=== PATIENT | female | born 1990 | race Caucasian/White ===

== ENCOUNTER 2021-09-30 08:52 | Emergency (ER) | payer BC ==
[2021-09-30 09:44] LABS: #Eosinphils 0.1 10x3/uL (0.0-0.5); #Monocytes 0.5 10x3/uL (0.0-1.1); #Neutrophils 5.1 10x3/uL (1.5-8.4); %Basophils 0.4 % (0.0-2.0); %Eosinophils 0.7 % (0.0-6.0); %Lymphocytes 29.8 % (18.0-47.0); %Monocytes 5.7 % (0.0-10.0); %Neutrophils 63.3 % (40.0-75.0); Hemoglobin 13.8 g/dL (12.0-15.5); Mean Corpuscular HGB CONC 34.8 g/dL (32.0-36.0); Mean Corpuscular Hemoglobin 29.7 pg (27.0-33.0); Mean Corpuscular Volume 85.3 fl (81.6-98.3); Mean Platelet Volume 9.8 fl (7.4-10.4); Platelet Count 246 10x3/uL (150-450); RBC Distribution Width 12.3 % (11.5-14.5); Red Blood Cell (RBC) Count 4.64 10x6/uL (3.90-5.03); White Blood Cell (WBC) Count 8.1 10x3/uL (3.5-10.5)
[2021-09-30 10:44] LABS: ALT (SGPT) 21 U/L (8-55); AST (SGOT) 20 U/L (5-34); Albumin 4.9 g/dL (3.5-5.0); Alkaline Phosphatase 42 U/L (40-110); Anion Gap 14 mmol/L (10-20); BUN (Urea Nitrogen) 10 mg/dL (7.0-18.7); Bilirubin, Total 1.1 mg/dL (0.2-1.2); Calc. Creatinine Clearance 0 mL/min (70-130); Calcium 9.3 mg/dL (7.8-10.44); Carbon Dioxide 24 mmol/L (22-29); Chloride 104 mmol/L (98-107); Glucose 123 mg/dL (70-105); Protein, Total 7.9 g/dL (6.0-8.3); Sodium 138 mmol/L (136-145)
== END 2021-09-30 11:16 | disposition home or self-care (01) ==
LOC: CSHERS 08:52
DX: O03.9 Complete or unspecified spontaneous abortion without complication (principal)
CPT/HCPCS: 71045; 76856; 80053; 84484; 84702; 85025; 86850; 86900; 86901; 93005

== ENCOUNTER 2021-10-04 11:04 | Outpatient (CLI) | payer BC | END 2021-10-04 11:05 | disposition home or self-care (01) | LOC: CSHLAB 11:04 | PROVIDERS: ATTEND Student in an Organized Health Care Education/Training Program | DX: Z01.812 Encounter for preprocedural laboratory examination (principal); Z20.822 Contact with and (suspected) exposure to COVID-19; O03.4 Incomplete spontaneous abortion without complication | CPT/HCPCS: 85027; 86850; 86900; 86901; U0003; U0005 ==

== ENCOUNTER 2021-10-06 09:50 | Day surgery (SDC) | payer BC ==
[2021-10-04 11:56] LABS: Hemoglobin 8.2 g/dL (12.0-15.5); Mean Corpuscular HGB CONC 32.7 g/dL (32.0-36.0); Mean Corpuscular Hemoglobin 29.2 pg (27.0-33.0); Mean Corpuscular Volume 89.3 fl (81.6-98.3); Mean Platelet Volume 9.6 fl (7.4-10.4); Platelet Count 224 10x3/uL (150-450); RBC Distribution Width 12.9 % (11.5-14.5); Red Blood Cell (RBC) Count 2.81 10x6/uL (3.90-5.03); White Blood Cell (WBC) Count 5.6 10x3/uL (3.5-10.5)
[2021-10-04 14:41] VITALS: BMI 19.5
[2021-10-05 12:47] LABS: SARS-CoV-2 PCR by NAA Not Detected (NotDetected)
[2021-10-06] MEDS ORDERED: CeleCOXIB 100 MG CAP ONE (10:22)
[2021-10-06] MEDS ORDERED: Lidocaine 1% MPF 2 ML VIAL ONE (10:23)
[2021-10-06] MEDS ORDERED: ADMIXTURE FEE IVPB SCH (11:00)
[2021-10-06] MEDS ORDERED: DOXYCYCLINE HYCLATE IVPB SCH (11:00)
[2021-10-06] MEDS ORDERED: SODIUM CHLORIDE IVPB SCH (11:00)
[2021-10-06] MEDS ORDERED: PROPOFOL 20 ML ONE (12:03)
[2021-10-06] MEDS ORDERED: Fentanyl 100 MCG/2 ML VIAL ONE (12:03)
[2021-10-06] MEDS ORDERED: Lidocaine 1% PF 5 ML VIAL ONE (12:03)
[2021-10-06] MEDS ORDERED: Midazolam HCl 2 mg/2 ml Vial ONE (12:06)
[2021-10-06] MEDS ORDERED: Dexamethasone 20 MG/5 ML VIAL ONE (12:27)
[2021-10-06] MEDS ORDERED: Ondansetron PF 4 MG/2 ML Vial ONE (12:27)
[2021-10-06 13:55] LABS: Hemoglobin 7.1 g/dL (12.0-15.5)
== END 2021-10-06 15:13 | disposition home or self-care (01) ==
LOC: CSHSDC 09:50
PROVIDERS: ATTEND Student in an Organized Health Care Education/Training Program
PROC: 10D17ZZ Extraction of Products of Conception, Retained, Via Natural or Artificial Opening (ICD-10-PCS; principal; 2021-10-06)
DX: O02.0 Blighted ovum and nonhydatidiform mole (principal); O08.1 Delayed or excessive hemorrhage following ectopic and molar pregnancy; Z20.822 Contact with and (suspected) exposure to COVID-19
CPT/HCPCS: 36415; 85014; 85018; 85027; 86850; 86900; 86901; 88305; J1100; J2250; J2405; J2704; J3010; J7050; U0003; U0005

== ENCOUNTER 2022-01-24 16:03 | Outpatient (CLI) | payer BC | END 2022-01-24 16:04 | disposition home or self-care (01) | LOC: CSHLAB 16:03 | PROVIDERS: ATTEND Student in an Organized Health Care Education/Training Program | DX: Z01.812 Encounter for preprocedural laboratory examination (principal); Z20.822 Contact with and (suspected) exposure to COVID-19; O02.1 Missed abortion | CPT/HCPCS: 85027; 86850; 86900; 86901; U0003; U0005 ==

== ENCOUNTER 2022-01-26 05:56 | Day surgery (SDC) | payer BC ==
[2022-01-24 16:35] LABS: Hemoglobin 14.3 g/dL (12.0-15.5); Mean Corpuscular HGB CONC 34.5 g/dL (32.0-36.0); Mean Platelet Volume 9.3 fl (7.4-10.4); Platelet Count 232 10x3/uL (150-450); RBC Distribution Width 12.3 % (11.5-14.5); Red Blood Cell (RBC) Count 5.11 10x6/uL (3.90-5.03); White Blood Cell (WBC) Count 7.1 10x3/uL (3.5-10.5)
[2022-01-25 00:57] LABS: SARS-CoV-2 PCR by NAA Not Detected (NotDetected)
[2022-01-25 10:45] VITALS: BMI 19.5
[2022-01-26] MEDS ORDERED: CeleCOXIB 100 MG CAP ONE (06:41)
[2022-01-26] MEDS ORDERED: Lidocaine 1% MPF 2 ML VIAL ONE (06:41)
[2022-01-26] MEDS ORDERED: ceFAZolin 2 GM/Dextrose 50 ML IVPB ONE (07:58)
[2022-01-26] MEDS ORDERED: Fentanyl 100 MCG/2 ML VIAL ONE ×2 (07:59→08:51)
[2022-01-26] MEDS ORDERED: Ondansetron PF 4 MG/2 ML Vial ONE (07:59)
[2022-01-26] MEDS ORDERED: PROPOFOL 20 ML ONE (07:59)
[2022-01-26] MEDS ORDERED: Dexamethasone 4 mg/ml Vial ONE (07:59)
[2022-01-26] MEDS ORDERED: Midazolam HCl 2 mg/2 ml Vial ONE (07:59)
[2022-01-26] MEDS ORDERED: Ketorolac Tromethamine 30 MG/ML VIAL ONE ×2 (07:59)
[2022-01-26] MEDS ORDERED: Lidocaine 1% PF 5 ML VIAL ONE (08:00)
[2022-01-26] MEDS ORDERED: Misoprostol 200 MCG TAB ONE (08:28)
== END 2022-01-26 09:40 | disposition home or self-care (01) ==
LOC: CSHSDC 05:56
PROVIDERS: ATTEND Student in an Organized Health Care Education/Training Program
PROC: 10D17ZZ Extraction of Products of Conception, Retained, Via Natural or Artificial Opening (ICD-10-PCS; principal; 2022-01-26)
DX: O02.1 Missed abortion (principal); Z20.822 Contact with and (suspected) exposure to COVID-19
CPT/HCPCS: 85027; 86850; 86900; 86901; 88305; J0690; J1100; J1885; J2250; J2405; J2704; J3010; U0003; U0005

== ENCOUNTER 2022-02-10 12:32 | Outpatient (CLI) | payer BC ==
[~2022-02-10 12:32] MED LIST: Iopamidol 300 61% 100 ML VIAL FS ONE
== END 2022-02-10 12:33 | disposition home or self-care (01) ==
LOC: CSHCT 12:32
PROVIDERS: ATTEND Otolaryngology Plastic Surgery within the Head & Neck
DX: K11.8 Other diseases of salivary glands (principal); R22.1 Localized swelling, mass and lump, neck
CPT/HCPCS: 70491

== ENCOUNTER 2022-03-30 09:55 | Day surgery (SDC) | payer BC ==
[2022-03-27 17:12] VITALS: BMI 20.3
[2022-03-30] MEDS ORDERED: CeleCOXIB 100 MG CAP ONE (10:38)
[2022-03-30] MEDS ORDERED: Lidocaine 1% MPF 2 ML VIAL ONE (10:56)
[2022-03-30 11:28] LABS: Hemoglobin 13.8 g/dL (12.0-15.5); Mean Corpuscular HGB CONC 35.2 g/dL (32.0-36.0); Mean Corpuscular Hemoglobin 29.8 pg (27.0-33.0); Mean Corpuscular Volume 84.7 fl (81.6-98.3); Mean Platelet Volume 9.6 fl (7.4-10.4); Platelet Count 204 10x3/uL (150-450); RBC Distribution Width 12.9 % (11.5-14.5); Red Blood Cell (RBC) Count 4.63 10x6/uL (3.90-5.03); White Blood Cell (WBC) Count 5.2 10x3/uL (3.5-10.5)
[2022-03-30] MEDS ORDERED: Lidocaine 1% PF 5 ML VIAL ONE (11:31)
[2022-03-30] MEDS ORDERED: Ondansetron PF 4 MG/2 ML Vial ONE (11:31)
[2022-03-30] MEDS ORDERED: Fentanyl 100 MCG/2 ML VIAL ONE (11:31)
[2022-03-30] MEDS ORDERED: PROPOFOL 20 ML ONE (11:31)
[2022-03-30 11:35] LABS: BHCG - Serum Negative (NEGATIVE); Pregs Control Background? CLEAR/WHITE (CLR/WHITE); Pregs Control Bar Appear? YES (CONTROL BAR)
[2022-03-30] MEDS ORDERED: CEFAZOLIN 2 GM VIAL ONE (12:02)
[2022-03-30] MEDS ORDERED: Dexamethasone 20 MG/5 ML VIAL ONE (12:23)
[2022-03-30] MEDS ORDERED: ePHEDrine Sulfate 50 MG/10 ML VIAL ONE (12:29)
[2022-03-30] MEDS ORDERED: Ketorolac Tromethamine 30 MG/ML VIAL ONE (12:35)
[2022-04-02 16:15] LABS: Cardiolipin IgM Ab 5.5 MPL-U/mL (<10 Negative); EliA APS New Method **** NEW METHOD ****
[2022-04-05 12:57] LABS: DRVVT Confirm 31.1
== END 2022-03-30 14:05 | disposition home or self-care (01) ==
LOC: CSHSDC 09:55
PROVIDERS: ATTEND Student in an Organized Health Care Education/Training Program
PROC: 0UDB8ZZ Extraction of Endometrium, Via Natural or Artificial Opening Endoscopic (ICD-10-PCS; principal; 2022-03-30)
PROC: 0UB98ZZ Excision of Uterus, Via Natural or Artificial Opening Endoscopic (ICD-10-PCS; principal; 2022-03-30)
DX: N84.0 Polyp of corpus uteri (principal); N71.1 Chronic inflammatory disease of uterus; Z79.2 Long term (current) use of antibiotics; Z79.899 Other long term (current) drug therapy; Z78.9 Other specified health status; Z20.822 Contact with and (suspected) exposure to COVID-19
CPT/HCPCS: 82232; 84703; 85027; 85613; 86147; 86850; 86900; 86901; 88305; J0690; J1100; J1885; J2405; J2704; J3010

== ENCOUNTER 2023-04-09 07:34 | Emergency (ER) | payer BC | END 2023-04-09 09:56 | disposition home or self-care (01) | LOC: CSHERS 07:34 | DX: O20.0 Threatened abortion (principal); O36.4XX0 Maternal care for intrauterine death, not applicable or unspecified; Z3A.09 9 weeks gestation of pregnancy | CPT/HCPCS: 76856; 84702; 86900; 86901 ==